=== PATIENT | female | born 1980 | race African-American/Black ===

== ENCOUNTER 2017-07-12 21:19 | Emergency (ER) | payer MEDICAID ==
[~2017-07-12] VITALS: Ht 180.3 cm; Wt 104.5 kg
[2017-07-12 22:51] LABS: BASOPHILS % (AUTO) 0.4 % (0.0-2.0); EOSINOPHILS % (AUTO) 0.5 % (1.0-6.0); HEMATOCRIT 41.2 % (36-46); LYMPHOCYTES # (AUTO) 3.5 K/uL (1.0-4.8); LYMPHOCYTES % (AUTO) 43.5 % (22.0-44.0); MEAN CORPUSCULAR HEMOGLOBIN 28.9 pg (26.0-34.0); MEAN CORPUSCULAR HGB CONC 34.1 G/dL (31.0-37.0); MEAN CORPUSCULAR VOLUME 85 fL (80-100); MONOCYTES # (AUTO) 0.6 K/uL (0.1-1.0); MONOCYTES % (AUTO) 7.3 % (2.0-9.0); NEUTROPHILS # (AUTO) 3.9 K/uL (1.8-7.7); NEUTROPHILS % (AUTO) 48.3 % (40.0-70.0); PLATELET COUNT (AUTO) 233 K/uL (150-450); RED BLOOD CELL COUNT(AUTO) 4.87 MIL/uL (4.00-5.20); WHITE BLOOD COUNT (AUTO) 8.1 K/uL (4.5-11.0)
[2017-07-12 22:59] LABS: ANION GAP 5 mmol/L (8-16); CALCIUM, TOTAL 9.4 mg/dL (8.8-10.5); CARBON DIOXIDE 31 mmol/L (22-29); CHLORIDE 106 mmol/L (98-107); CREATININE 0.83 mg/dL (0.60-1.30); GLOMERULAR FILTR. RATE CALC > 60 mL/min (>60); POTASSIUM 4.3 mmol/L (3.5-5.1); SODIUM SERUM 142 mmol/L (136-145); UREA NITROGEN, BLOOD 11 mg/dL (7-18)
[2017-07-12 23:21] LABS: APPEARANCE,URINE CLOUDY (CLEAR); GLUCOSE, URINE (UA) NEGATIVE (NEGATIVE); KETONES,URINE NEGATIVE (NEGATIVE); LEUKOCYTE ESTERASE ,URINE TRACE (NEGATIVE); OCCULT BLOOD,URINE SMALL (NEGATIVE); PH,URINE 6.5 (5.0-8.0); PROTEIN,URINE NEGATIVE (NEGATIVE)
[2017-07-12 23:26] LABS: ADD UA MICROSCOPIC YES
[2017-07-12 23:49] LABS: SQUAMOUS EPITHELIAL CELL,UR Rare /LPF (None Seen)
[2017-07-13] MEDS ORDERED: SULFAMETHOX/TRIMETH DS 800-160 MG/TABLET PO ONE (00:15)
[2017-07-13] MEDS ORDERED: ALPRAZolam 0.25 MG TABLET PO ONE (00:15)
[2017-07-13 00:36] VITALS: BP 138/86
== END 2017-07-13 00:39 | disposition home or self-care (01) ==
LOC: EMS 21:21
DX: N39.0 Urinary tract infection, site not specified (principal); F41.9 Anxiety disorder, unspecified; D25.9 Leiomyoma of uterus, unspecified; I10 Essential (primary) hypertension
CPT/HCPCS: 76700; 81025; 93005; 99285

== ENCOUNTER 2018-03-19 12:56 | Emergency (ER) | payer MEDICAID ==
[~2018-03-19] VITALS: Ht 170.2 cm; Wt 102.0 kg
[2018-03-19 13:00] VITALS: BP 136/101
[2018-03-19 13:32] LABS: BASOPHILS % (AUTO) 1.1 % (0.0-2.0); HEMATOCRIT 41.1 % (36-46); HEMOGLOBIN 14.2 g/dL (12.0-16.0); LYMPHOCYTES # (AUTO) 2.6 K/uL (1.0-4.8); LYMPHOCYTES % (AUTO) 42.6 % (22.0-44.0); MEAN CORPUSCULAR HGB CONC 34.6 G/dL (31.0-37.0); MEAN CORPUSCULAR VOLUME 84 fL (80-100); MONOCYTES # (AUTO) 0.4 K/uL (0.1-1.0); NEUTROPHILS # (AUTO) 3.1 K/uL (1.8-7.7); NEUTROPHILS % (AUTO) 49.3 % (40.0-70.0); PLATELET COUNT (AUTO) 202 K/uL (150-450); RED BLOOD CELL COUNT(AUTO) 4.91 MIL/uL (4.00-5.20); RED CELL DISTRIBUTION WIDTH 15.3 % (11.5-14.5)
[2018-03-19 13:44] LABS: ANION GAP 7 mmol/L (8-16); CALCIUM, TOTAL 8.8 mg/dL (8.8-10.5); CARBON DIOXIDE 28 mmol/L (22-29); CHLORIDE 104 mmol/L (98-107); CREATININE 0.83 mg/dL (0.60-1.30); GLOMERULAR FILTR. RATE CALC > 60 mL/min (>60); GLUCOSE,RANDOM 82 mg/dL (70-110); POTASSIUM 3.9 mmol/L (3.5-5.1); SODIUM SERUM 139 mmol/L (136-145); UREA NITROGEN, BLOOD 13 mg/dL (7-18)
[2018-03-19 13:50] LABS: ALANINE AMINOTRANSFERASE 21 U/L (12-78); ALBUMIN 3.6 g/dL (3.4-5.0); ALKALINE PHOSPHATASE 42 U/L (46-116); AMYLASE 66 U/L (25-115); ASPARTATE AMINOTRANSFERASE 17 U/L (15-37); BILIRUBIN,TOTAL 0.4 mg/dL (0.1-1.0); LIPASE 145 U/L (73-393); TOTAL PROTEIN, SERUM 7.1 g/dL (6.4-8.2)
[2018-03-19 14:07] LABS: PLATELET MORPHOLOGY COMMENT GIANT PLTS PRESENT
[2018-03-19] MEDS ORDERED: ONDANSETRON HCL 4 MG TABLET PO ONE (16:15)
[2018-03-19 16:32] LABS: APPEARANCE,URINE CLEAR (CLEAR); BILIRUBIN,URINE NEGATIVE (NEGATIVE); GLUCOSE, URINE (UA) NEGATIVE (NEGATIVE); KETONES,URINE NEGATIVE (NEGATIVE); LEUKOCYTE ESTERASE ,URINE NEGATIVE (NEGATIVE); NITRATE,URINE NEGATIVE (NEGATIVE); OCCULT BLOOD,URINE NEGATIVE (NEGATIVE); PH,URINE 6.5 (5.0-8.0); PROTEIN,URINE NEGATIVE (NEGATIVE); UROBILINOGEN,URINE 0.2 mg/dL (<=1.0)
== END 2018-03-19 18:34 | disposition left against medical advice (07) ==
LOC: EMS 12:56
DX: R10.9 Unspecified abdominal pain (principal); D25.9 Leiomyoma of uterus, unspecified
CPT/HCPCS: 36415; 80053; 81003; 82150; 83690; 84703; 85025; 99284; Q0162